=== PATIENT | female | born 1965 | race Two or more races ===

== ENCOUNTER 2025-03-02 20:46 | Emergency (ER) | payer BC ==
[~2025-03-02] VITALS: Ht 160 cm; Wt 61.2 kg
[2025-03-02] MEDS ORDERED: MECLIZINE HCL 25 MG TABLET ONE (22:25)
[2025-03-02] MEDS ORDERED: ONDANSETRON 4 MG/2 ML VIAL ONE (22:26)
[2025-03-02] MEDS ORDERED: MORPHINE SULFATE 2 MG/1 ML DISP.SYRIN ONE (22:26)
[2025-03-02 22:34] LABS: PLATELET COUNT (AUTO) 206 K/uL (179-408); RED BLOOD CELL COUNT(AUTO) 3.73 MIL/uL (3.63-4.92); RED CELL DISTRIBUTION WIDTH 13.5 % (12.3-17.7); WHITE BLOOD COUNT (AUTO) 5.8 K/uL (3.8-11.8)
[2025-03-02] MEDS: MECLIZINE HCL 25 MG TABLET PO ONE (22:36)
[2025-03-02] MEDS: ONDANSETRON 4 MG/2 ML VIAL IV ONE (22:36)
[2025-03-02] MEDS: MORPHINE SULFATE 2 MG/1 ML DISP.SYRIN IV ONE (22:37)
[2025-03-02] MEDS: IV NS 1000 ML 1,000 ML IV ONE (22:37)
[2025-03-02 22:51] LABS: ASPARTATE AMINOTRANSFERASE 18.0 U/L (15-37); CREATININE 0.6 mg/dL (0.6-1.3); SODIUM SERUM 144.0 mmol/L (136-145); TOTAL PROTEIN, SERUM 7.2 g/dL (6.4-8.2); UREA NITROGEN, BLOOD 20.0 mg/dL (7-18)
[2025-03-03] MEDS ORDERED: GABA100C PO (00:12)
[2025-03-03] MEDS ORDERED: MECL-159 PO (00:12)
[2025-03-03 00:27] VITALS: BP 128/73; O2SAT 99
== END 2025-03-03 00:29 | disposition home or self-care (01) ==
LOC: ER 21:00
DX: R51.9 Headache, unspecified (principal); R42 Dizziness and giddiness; R11.0 Nausea; Z79.899 Other long term (current) drug therapy
CPT/HCPCS: 99285; 96374; 70450; 96361; 71045; 96375; 80053; 83880; 85025; 84484; 93005; J2405; J2270; J7040; 36415; A4606; A4663; J8597